=== PATIENT | female | born 1995 | race Caucasian/White ===

== ENCOUNTER 2019-08-19 12:25 | Emergency (ER) | payer BC, SELFPAY ==
[2019-08-19 12:36] VITALS: BP 104/59; PULSE 95; RESP 16; TEMP 37.5; O2SAT 100
--- NOTE | 2019-08-19 12:53 | ED.URI ---
HPI - URI/Sore Throat General Chief Complaint: Upper Respiratory Infection Stated Complaint: Diarrhea/Fever/Ear/Throat Time Seen by Provider: 08/19/19 12:53 Source: patient and family History of Present Illness HPI Narrative: Patient presents with cough, nasal congestion, bilateral ear pain for the past 4 days. No shortness of breath no chest pain. Patient states she has missed 1 day of work and does not think she will be able to work tomorrow due to her symptoms. Patient is taking [id number] TheraFlu with minimal relief in her symptoms. Related Data Allergies Allergy/AdvReac Type Severity Reaction Status Date / Time No Known Allergies Allergy Verified 08/19/19 12:44 Review of Systems Review of Systems: Narrative: CONSTITUTIONAL: Denies fever, chills, or sweats. EYES: Denies visual changes, redness, or discharge. ENT: Denies sore throat, or otalgia. Nasal congestion and postnasal drainage CARDIOVASCULAR: Denies chest pain, palpitations, or edema. RESPIRATORY: Denies cough or dyspnea. GASTROINTESTINAL: Denies abdominal pain, nausea, vomiting, or diarrhea. GENITOURINARY: Denies dysuria or hematuria. SKIN: Denies rash or itching. MUSCULOSKELETAL: Denies back pain, joint pain, or myalgia. NEUROLOGIC: Denies headache, numbness, or weakness. PSYCHIATRIC: Denies anxiety or depression. All systems reviewed & are unremarkable except as noted in HPI and below PMFSH Comments At time of signature, agree with nursing past medical, surgical, social and family history. There is no relevant family history pertinent to the presenting complaint Exam Narrative: Exam Narrative: GENERAL: Well-appearing, well-nourished, and in no acute distress. HEAD: Normocephalic, atraumatic. EYES: PERRLA and EOMI. ENT: Nares clear, no r epistaxis. Mucous membranes moist. Moderate amount of postnasal drainage mild pharyngeal erythremia no exudate bilateral TM dullness NECK: Supple. CHEST: Clear to auscultation. No respiratory distress. HEART: Regular rate and rhythm. No murmur heard. Normal peripheral pulses. ABDOMEN: Soft, nontender, nondistended, normal active bowel sounds. EXTREMITIES: Normal range of motion. No edema. SKIN: Warm, dry, no rash. NEURO: No focal deficits. Alert and oriented x3. [place] Coma Scale Eye Opening: Spontaneous 4 [place] Coma Scale Motor: Obeys Commands 6 [place] Coma Scale Verbal: Oriented 5 [place] Coma Scale Total 15 Course Vital Signs Vital signs: Vital Signs Temperature 37.5 C 08/19/19 12:36 Pulse Rate 95 08/19/19 12:36 Respiratory Rate 16 08/19/19 12:36 Blood Pressure 104/59 L 08/19/19 12:36 Pulse Oximetry 100 08/19/19 12:36 Temperature 37.5 C 08/19/19 12:36 Pulse Rate 95 08/19/19 12:36 Respiratory Rate 16 08/19/19 12:36 Blood Pressure 104/59 L 08/19/19 12:36 Pulse Oximetry 100 08/19/19 12:36 MDM - URI/Sore Throat Differential Diagnosis Differential diagnosis: Likely upper respiratory infection, otitis media, sinusitis, viral infection, bronchitis, influenza and pharyngitis Critical Care Time Critical Care Time Critical Care Time: No Discharge Plan Discharge Clinical Impression: Viral infection Upper respiratory infection Qualifiers: URI type: unspecified viral URI Qualified Code(s): J06.9 - Acute upper respiratory infection, unspecified Patient Disposition: Home, Self-Care Condition: Stable Instructions: Antibiotic Form Additional Instructions: take medications as prescribed. congestion - flonase am and pm for chronic sinus congestion or prolonged symptoms of sinusitis (takes several days to work). one to three times a day of irrigation of sinus with saline spray, ocean nasal spray or nelia pot. fluids. if you don't have hypertension-afrin nasal spray with a 3 day limit for immediate relief of sinus congestion. for runny nose: do over the counter antihistamine (claritin, benadryl, zyrtec) for sneezing, runny nose. allergies. sudafed or
== END 2019-08-19 12:56 | disposition home or self-care (01) ==
PROVIDERS: Emergency Provider Nurse Practitioner Family
DX: B34.9 Viral infection, unspecified (principal); J06.9 Acute upper respiratory infection, unspecified
CPT/HCPCS: 99213; G0463

== ENCOUNTER 2024-08-26 12:18 | Emergency (ER) | payer SELFPAY ==
[2024-08-26 12:26] VITALS: BP 104/67; PULSE 100; RESP 16; TEMP 37.1; O2SAT 100
--- NOTE | 2024-08-26 13:08 | ED.GENADULT ---
HPI - General Adult General Chief complaint: Urogenital-Female Stated complaint: Abdominal Pain/Back Pain Time Seen by Provider: 08/26/24 13:00 Source: patient, RN notes reviewed and old records reviewed Mode of arrival: ambulatory Limitations: no limitations History of Present Illness HPI narrative: 29 year old female who presents to [facility] care accompanied by family member with complaints of 3 day history of headache, chills, cough and some sinus drainage. Patient reports that she has had some low back pain and some abdominal discomfort with these symptoms similar of past UTI.Patient reports that she has been taking Tylenol and Ibuprofen and sinus medication for her symptoms. MD complaint: headache, chills cough, sinus drainage, back and stomach ache. Onset (ago): day(s) (3) Severity: moderate Treatments prior to arrival: NSAID and other (Tylenol, sinus medication) Related Data Allergies Allergy/AdvReac Type Severity Reaction Status Date / Time No Known Allergies Allergy Verified 08/26/24 12:33 Review of Systems Review of Systems: CONSTITUTIONAL: Reports malaise, chills, sweats, or fever. EYES: Denies visual changes, redness, or discharge. ENT: Reports rhinorrhea, congestion, sinus pain, no otalgia and no sore throat. CARDIOVASCULAR: Denies chest pain, palpitations, or edema. RESPIRATORY: Reports cough.? Denies dyspnea. GASTROINTESTINAL: reports mid abdominal pain, no nausea, vomiting, diarrhea, reports low back pain SKIN: Denies rash or itching. MUSCULOSKELETAL: reports myalgia. NEUROLOGIC: Reports headache. All systems reviewed & are unremarkable except as noted in HPI and below PMFSH Past Medical History Medical History (Updated 08/28/24 @ 11:58 by Bridget Anderson NP) Urinary tract infection Social History Social History (Updated 08/28/24 @ 11:58 by Bridget Anderson NP) Smoking status: Never smoker Alcohol intake: current Alcohol use details: social Substance use type: does not use Living arrangements: with family Additional occupation/education comments: teacher Gender identity (if verbalized by the patient): Female Comments At time of signature, agree with nursing past medical, surgical, social and family history. There is no relevant family history pertinent to the presenting complaint Exam Narrative: GENERAL: Ill-appearing, well-nourished, and in no acute distress. HEAD: Normocephalic EYES: PERRLA, conjunctivae clear ENT: Nares clear, turbinates edematous and erythematous, clear discharge. Mucous membranes moist. TM pearly sunshine with dull light reflex bilaterally; no tragal tenderness. Oropharynx erythematous without lesions. Tonsils not enlarged and without exudate, no drooling, no hoarseness, no trismus, uvula midline.post nasal drainage NECK: Supple. No lymphadenopathy CHEST: Clear to auscultation, breath sounds equal. No wheezing, rhonchi, rales, or stridor. No respiratory distress, speaks in full sentences.cough, SAO2 100% on room air Gastrointestinal: abdomen soft and nontender to palpation, pain to mid abdomen radiates to lower back, No McBurney point tenderness, no vomiting or diarrhea HEART: Regular rate and rhythm. No murmur heard. SKIN: Warm, dry, no rash. NEURO: Alert and oriented x3. PSYCH: Normal mood and affect Course Course Emergency Course: Patient is aware of diagnosis, understands and agrees to treatment plan.? Anticipatory guidance given.? Patient agrees to follow-up as directed and is aware of reasons to seek care at the emergency department. Portions of this record may have been created with voice recognition software Level of Care: Express Care Visit Vital Signs Vital signs: Vital Signs Temperature 37.1 C 08/26/24 12: Pulse Rate 100 08/26/24 12:26 Respiratory Rate 16 08/26/24 12:26 Blood Pressure 104/67 08/26/24 12:26 Pulse Oximetry 100 08/26/24 12:26 Oxygen Delivery Room Air 08/26/24 12:26 Temperature 37.1 C 08/26/24 12:26 Pulse Rate 100 08/26/24 12:26 Respiratory Rate 16 08/26/24 12:26 Blood Pressure 104/67 08/26/24 12:26 Pulse Oximetry 100 08/26/24 12:26 Oxygen Delivery Room Air 08/26/24 12:26 Reviewed Medical Decision Making Differential Diagnosis Differential Diagnosis: URI, viral infection, sinusitis, UTI, Influenza COVID Medical Records Medical records reviewed: Yes I reviewed the external patient's medical records. Vital Signs Vital Signs: Vital Signs Temperature 37.1 C 08/26/24 12:26 Pulse Rate 100 08/26/24 12:26 Respiratory Rate 16 08/26/24 12:26 Blood Pressure 104/67 08/26/24 12:26 Pulse Oximetry 100 08/26/24 12:26 Oxygen Delivery Room Air 08/26/24 12:26 Temperature 37.1 C 08/26/24 12:26 Pulse Rate 100 08/26/24 12:26 Respiratory Rate 16 08/26/24 12:26 Blood Pressure 104/67 08/26/24 12:26 Pulse Oximetry 100 08/26/24 12:26 Oxygen Delivery Room Air 08/26/24 12:26 Lab Data Lab results reviewed: Yes I reviewed the patient's lab results. Lab results narrative: Influenza A positive, Influenza B negative, COVID antigen negative, see urine dip: positive nitrite and trace leukocytes, pale cloudy urine Labs: Lab Results 08/26/24 08/26/24 Range/Units 12:30 13:22 POC Urine Color Light/pale POC Urine Clarity Cloudy POC Urine pH 6.5 POC Ur Specif [place] 1.015 POC Urine Protein Negative (Negative) POC Ur Glucose (UA) Negative (Negative) POC Urine Ketones Negative (Negative) POC Urine Blood Negative (Negative) POC Urine Nitrite Positive (Negative) POC Urine Bilirubin Negative (Negative) POC Urine Urobilinogen 0.2 POC U Leukocyte Esteras Trace (Negative) POC Influenza A Ag Positive (Negative) POC Influenza B Ag Negative (Negative) POC SARS CoV-2 Ag Negative (Negative) reviewed Critical Care Time Critical Care Time Critical Care Time: No Discharge Plan Discharge Clinical Impression: Influenza A Urinary tract infection Qualifiers: Urinary tract infection type: site unspecified Hematuria presence: with hematuria Qualified Code(s): N39.0 - Urinary tract infection, site not specified Patient Disposition: Home, Self-Care Condition: Stable Instructions: Antibiotic Form, Urinary Tract Infection in Women (ED), Influenza (ED) Additional Instructions: Increase fluids especially juices and water [id number] cough and cold medicine of your choice for your symptoms Tylenol or ibuprofen for any fever pain, recommend Zyrtec Claritin or [place] daily Recommend Delsym or Robitussin cough syrup heat to the face 20-30 minutes 4-6 times a day for pain Salt water gargles, throat lozenges or throat sprays as desired Increase fluids especially cranberry juice and water Avoid caffeine and carbonated beverages Antibiotic as directed Follow-up with her primary care provider if further problems or concerns Recheck if you have fever over 101, nausea and vomiting. Must be fever free for 24 hours without use of Tylenol or ibuprofen before you can return to work Patient Language: Maori Prescriptions: New nitrofurantoin monohyd/m-cryst [Macrobid] 100 mg capsule 100 mg PO Q12H 7 Days Qty: 14 0RF Rx Instructions: must administer with a meal/food Follow-up/Referrals: PHYSICIAN,ELECTRONIC PUBLISHING SPECIALIST [Primary Care Provider] - Stand Alone Forms: Work/School Release IP Time of Disposition: 13:32 Quality [place] Coma Scale Eyes: Open Verbal: Oriented and Alert Motor: Follows Commands Cir[place] Coma Total Score: 15
[2024-08-26 13:19] LABS: EDCOVIDSCREEN Negative (Negative); EDINFLUASCREEN Positive (Negative); EDINFLUBSCREEN Negative (Negative)
[2024-08-26 13:23] LABS: EDUAAPPEAR Cloudy; EDUABILI Negative (Negative); EDUABLOOD Negative (Negative); EDUACOLOR1 Light/Pale; EDUAGLUCOSE Negative (Negative); EDUAKETONE Negative (Negative); EDUALEUKO Trace (Negative); EDUANITRATE Positive (Negative); EDUAPH 6.5; EDUAPROTEIN Negative (Negative); EDUASPGRAVITY 1.015; EDUAUROBILI 0.2
== END 2024-08-26 13:38 | disposition home or self-care (01) ==
PROVIDERS: Emergency Provider Registered Nurse
DX: J10.1 Influenza due to other identified influenza virus with other respiratory manifestations (principal); N39.0 Urinary tract infection, site not specified; Z20.822 Contact with and (suspected) exposure to COVID-19
CPT/HCPCS: 81003; 87086; 87186; 87426; 87804; 99203; G0463